=== PATIENT | female | born 1985 | race Asian ===

== ENCOUNTER → 2016-04-18 | Outpatient (CLI) | payer OTHER ==
--- NOTE | 2016-04-18 14:01 | US ---
April 18, [address] Grant, Thank you for requesting consultation and a follow up ultrasound for your patient, Mrs. Jordan youssef. As you know, Gavi is a 31 year old G 2, P 1001 . Her due date is 07/23/16 by LMP and 20 wee k ultrasound. Her current gestational age based on this dating is is 26 weeks 2 days. She is seen t ibis for a follow up assessment of growth in a complicated by chronic hypertension not requ iring medications. Her blood pressure in our office was 115/75. She states that they are in this ra nge at home also. ULTRASOUND Number of fetuses: 1 Placental location: Anterior; no evidence of previa presentation: Cephalic Heart Rate: 169 bpm Cervix: 4.1 cm viewed transabdominally Maximum Vertical Pocket: 5.9 cm Measurements: Biparietal diameter: 64 mm 26 weeks, 0 days Head circumference: 252 mm 27 weeks, 3 days Abdominal circumference: 216 mm 26 weeks, 1 days Femur length: 48 mm 26 weeks, 1 days Humerus length: 45 mm 26 weeks, 4 days Transcerebellar diameter: 33 mm 27 weeks, 6 days Average age by ultrasound: 26 weeks, 3 days Estimated weight: 901 gm weight percentile: 33 % ANATOMY anatomy was previously assessed. Today the following structures were visualized and appeared n ormal: Male gender, aortic arch, ductal arch, three-vessel view, limited views of the four-chamber h eart, stomach, lip and nose views, profile, lateral ventricle, cavum septum pellucidum, cerebel lum, bilateral kidneys, bladder, and lower extremities. IMPRESSION: 1. Intrauterine at 26 weeks, 2 days; KOBI of 07/23/16. 2. growth is appropriate size for dates. 3. anatomy was previously assessed and today's ultrasound continues to provide reassurance of normal appearing anatomy. 4. Normal amniotic fluid volume 5. Chronic hypertension RECOMMENDATIONS: I was pleased to review today's ultrasound with your patient. I reassured her that growth is normal at the 33 %ile for this gestational age. The amniotic fluid volume is normal. We performed a review of the anatomy which was limited by gestational age, and acoustic shadowing, but no overt abno rmalities were noted. I recommended a growth ultrasound at 32 weeks. Should she still be well controlled from a blood pres sure standpoint and the baby is appropriately grown at the next visit, then further imaging is at you r discretion. Thank you for allowing us the opportunity to evaluate your patient. Should you have any further ques tions or concerns please do not hesitate to contact me. Approximately 15 minutes were spent with the patient and 10 minutes were spent in face to face consu ltation. Lisset Min MD Survival Specialist Maternal Medicine Diagnosis Department of Obstetrics & Gynecology [facility]
--- NOTE | 2016-04-18 17:23 | US ---
OB Sonogram History: Follow-up growth, chronic maternal hypertension, history of section, KOBI July 23 7, 26 weeks 2 days Comparison: March 06, 2016 Findings: There is a single viable intrauterine gestation in vertex presentation. The cervix is close d measuring 4.1 cm transabdominally. The placenta is anterior without previa. There is no premature m aturation of the placenta. The umbilical cord inserts normally into the placenta. Maximum amniotic fl uid pocket = 5.9 cm. The visualized intracranial contents, face and spine look normal. The heart i s 4 chambered and has a intact interventricular septum and normal right and left ventricular outflow tracts. heart rate = 169 bpm. Fluid is identified in the stomach and urinary bladde r. The renal region looks normal. The umbilical cord has 3 vessels and a normal insertion site. 4 extremities are present. BPD = 64 mm = 26 weeks 0 days Head circumference = 252 mm = 27 weeks 3 days Abdominal circumference = 216 mm = 26 weeks 1 day Femur length = 48 mm = 26 weeks 1 day Humeral length = 45 mm = 26 weeks 4 days Cerebellar width = 33 mm = 27 weeks 6 days Cisterna magna = 5.9 mm Estimated weight = 33 percentile Average gestational age by ultrasound = 26 weeks 3 days KOBI by ultrasound = July 22, 2016 Impression: Size consistent with dates. This report should be read in conjunction with a consultation by Dr. Lisset Min.
== END ==
LOC: FIMAGING 12:35
PROVIDERS: ATTEND Obstetrics & Gynecology
DX: O16.2 Unspecified maternal hypertension, second trimester (principal); Z3A.26 26 weeks gestation of pregnancy

== ENCOUNTER → 2016-06-05 | Outpatient (CLI) | payer OTHER | LOC: FIMAGING 14:40 | PROVIDERS: ATTEND Obstetrics & Gynecology | DX: O10.913 Unspecified pre-existing hypertension complicating pregnancy, third trimester (principal); Z3A.33 33 weeks gestation of pregnancy; Z98.891 History of uterine scar from previous surgery ==

== ENCOUNTER 2016-07-16 14:12 | Observation (INO) | payer OTHER ==
--- NOTE | 2016-07-25 14:45 | GPROG ---
[f rep st] PROGRESS NOTE DISCHARGE ORDER DATE OF DISCHARGE: 07/16/2016 /[id number]/MODL
== END 2016-07-16 15:10 | disposition home or self-care (01) ==
LOC: FLD 14:12
PROVIDERS: ADMIT Obstetrics & Gynecology; ATTEND Obstetrics & Gynecology
DX: Z34.93 Encounter for supervision of normal pregnancy, unspecified, third trimester (principal); N89.8 Other specified noninflammatory disorders of vagina; Z3A.39 39 weeks gestation of pregnancy
CPT/HCPCS: 59025; G0378

== ENCOUNTER 2016-07-17 00:28 | Inpatient (IN) | payer OTHER ==
[2016-07-17] MEDS ORDERED: EPSOM SALT 454 GM TP PRN (00:56)
[2016-07-17] MEDS ORDERED: LIDOCAINE 1% 30 ML SDV SC PRN (00:56)
[2016-07-17] MEDS ORDERED: OLIVE OIL 118 ML BTL MISC PRN (00:56)
[2016-07-17] MEDS ORDERED: OXYTOCIN/RINGERS LACTATE 1,000 ML IV PRN (00:56)
[2016-07-17] MEDS ORDERED: LR 1,000 ML IV PRN (00:56)
[2016-07-17] MEDS ORDERED: TERBUTALINE SULFATE 1 MG/ML VIAL IV PRN (00:56)
[2016-07-17] MEDS ORDERED: AMPICILLIN SODIUM 2 GM in NS 100 ML IV ONE (00:56)
[2016-07-17] MEDS ORDERED: NS 100 ML BAG (MINI-BAG) IV ONE (01:04)
[2016-07-17 01:22] LABS: ADD DIFF? YES; ADD MORPH? NO; ADD SCAN? NO; ATYPICAL LYMPHOCYTE FLAG 10 (0-99); FRAGMENT RBC FLAG 0 (0-99); HEMATOCRIT 38.1 % (38.0-47.0); HEMOGLOBIN 12.7 g/dL (12.6-16.3); LEFT SHIFT FLG 20 (0-99); LIPEMIA HEMOLYSIS FLAG 80 (0-99); MEAN CELL HEMOGLOBIN 27.3 pg (27.9-34.1); MEAN CELL HEMOGLOBIN CONCENTR. 33.3 g/dL (32.4-36.7); MEAN CELL VOLUME 81.8 fL (81.5-99.8); MEAN PLATELET VOLUME 10.8 fL (8.7-11.7); PLATELET CLUMPS FLAG 20 (0-99); PLATELET COUNT 259 10^3/uL (150-400); RED BLOOD CELL COUNT 4.66 10^6/uL (4.18-5.33); RED CELL DISTRIBUTION WIDTH 15.1 % (11.5-15.2)
[2016-07-17] MEDS ORDERED: LIDOCAINE 1% 30 ML SDV ONE (01:30)
[2016-07-17] MEDS ORDERED: MISOPROSTOL 200 MCG TAB ONE (01:31)
[2016-07-17] MEDS ORDERED: TERBUTALINE SULFATE 1 MG/ML VIAL ONE (01:31)
[2016-07-17] MEDS ORDERED: OLIVE OIL 118 ML BTL ONE (01:31)
[2016-07-17] MEDS ORDERED: OXYTOCIN 10 UNIT/ML VIAL ONE (01:31)
[2016-07-17] MEDS ORDERED: AMMONIA AROMATIC 1 EACH AMP IH ONE (01:31)
--- NOTE | 2016-07-17 01:56 | GHP ---
[f rep st] HISTORY AND PHYSICAL DATE OF ADMISSION: 07/17/2016 CHIEF COMPLAINT: Leakage of fluid. HISTORY OF PRESENT ILLNESS: The patient is a G2, P1-0-0-1, at 39 weeks 1 day by LMP and 20 week US, who presents with leaking fluid since 11:30 p.m. She had been seen earlier in the day for increased discharge, but had been ruled out for rupture; however, at 11:30 p.m., she was lying down and had a very large gush of fluid. She denied contractions at that time, and was advised to present to Labor and Delivery for evaluation. Upon arriving to Labor and Delivery, she stated she began to have contractions shortly after she had called in complaining of leaking fluid, but was still feeling comfortable. Of note, she has a history of a in 2010 for failure to descend. Per her report, she was induced and after pushing for about 90 minutes, a was performed, as she was exhausted and had not yet delivered the baby. She denies any other complications in that or this . She denies vaginal bleeding. Her baby is active. OB Lab: B+, antibody neg. Hct 38.9. Varicell and rubella immune. RPR NR. Urine cx neg. HBsAg Neg, HIV Neg. 1 hour glucola = 99 Genetic screening declined. Normal 20 week anatomy ultrasound. Anterior placenta. GBS positive s/p Tdap and flu vaccines PAST MEDICAL HISTORY: One elevated blood pressure at first OB visit; normal since that time PAST SURGICAL HISTORY: with unknown scar, documented as LSCS in her operative note from [facility] in 2010. MEDICATIONS: vitamins. ALLERGIES: None. FAMILY HISTORY: Noncontributory. PHYSICAL EXAMINATION: VITAL SIGNS: 122/78, 93, 36.6 GENERAL: Alert, awake, in no acute distress. Oriented x4. CARDIOVASCULAR: Regular rate and rhythm. LUNGS: Unlabored breathing. ABDOMEN: Gravid, soft, nontender. EFW 7.5#. EXTREMITIES: No edema. GYNECOLOGIC: Grossly ruptured with clear fluid. Sterile vaginal exam: 8 cm, 90% effaced, -2 station, vertex. heart rate baseline 140, with moderate variability, positive accelerations, and no decelerations. Tocometer: Intermittent contractions about every 5 minutes. ASSESSMENT AND PLAN: Patient is a 31-year-old, G2, P1, at 39 weeks 1 day, who presents ruptured, in active labor. status reassuring. She just recently began having contractions and they remain somewhat irregular; however, she has progressed to 8 cm. She denies being in pain at this time. We had a detailed discussion with the patient and her regarding the risks and benefits of trial of labor after versus repeat delivery now. Both were offered to the patient. We specifically reviewed the risks of uterine rupture which could be a catastrophic occurrence, with a risk of ~ 1%. Likely her prior note is documented a lower segment section (LSCS). Her placenta is anterior, with no accreta/previa documented on US. We also reviewed the risks of recurrence of her prior history of failure to descend, ultimately requiring a delivery. After discussion of all risks and benefits, the parents state that they would like to proceed with a trial of labor. - Admit to Labor and Delivery for trial of labor after . - Start ampicillin for GBS positive. - Draw CBC and type and screen. - Continuous monitoring. - Routine intrapartum care. - Epidural prn /[id number]/MODL MTDD
[2016-07-17 02:36] LABS: MICROCYTES 1+; PLATELET ESTIMATE ADEQUATE (ADEQ)
[2016-07-17] MEDS ORDERED: fentaNYL 100 MCG/2 ML INJ ONE (02:43)
[2016-07-17] MEDS ORDERED: fentaNYL 2MCG/ML/BUP 0.1% RTU 100 ML BAG EP ONE (02:43)
[2016-07-17] MEDS ORDERED: BUPIVACAINE/DEXTROSE 7.5MG/ML 2 ML SPINAL AMP SP ONE (03:07)
[2016-07-17] MEDS ORDERED: PHENYLEPHRINE HCL 100 MCG/ML SYR ONE (03:07)
[2016-07-17] MEDS ORDERED: BUPIVACAINE 0.25% 30 ML SDV ONE (03:10)
[2016-07-17] MEDS ORDERED: LR 500 ML IV SCH (04:00)
--- NOTE | 2016-07-17 04:22 | OBPROG ---
OBG Progress Note Assessment/Plan: Assessment: 39w1d TOLAC Change in baseline from 130s/140s to 120s after epidural, mom requiring epinephrine for low BPs New intermittent decels, but overall reassuring No significant labor progression ROP presentation Plan: IV fluids O2 Position change IUPC Will continue to monitor closely, consider pitocin if contractions not adequate and status remains reassuring 07/17/16 04:20 Subjective: Comfortable with epidural Objective: 07/17/16 00:56 Patient ABO/Rh B POSITIVE 07/17/16 01:00 VS: BPs 90s/60s after epidural, increased to 110s-120/70s-80s after epinephrine Gen: awake, NAD Abd: soft, nontender Ext: no edema SVE: 8/80/-2/vtx/ROP FHR: baseline 120s, mod darien, + acc, intermittent variable decels and ? rare late decels. Overall reassuring with moderate variability and accelerations [place]: IUPC placed as contractions not picking up well FHR Pattern Variability: Moderate FHR Category: 2 Membranes: SROM Amniotic Fluid Color: Clear ICD10 Worksheet Patient Problems: Problems Problem Status Onset Encounter for trial of labor Acute - ICD10 Problem Qualifiers (1) Encounter for trial of labor
[2016-07-17] MEDS ORDERED: LR 500 ML IV PRN (04:49)
[2016-07-17] MEDS ORDERED: AMPICILLIN SODIUM 1 GM in NS 100 ML IV SCH (04:56)
[2016-07-17] MEDS ORDERED: OXYTOCIN/RINGERS LACTATE 500 ML IV SCH (05:00)
--- NOTE | 2016-07-17 05:03 | OBPROG ---
OBG Progress Note Assessment/Plan: Assessment: 39w1d TOLAC Change in baseline from 130s/140s to 120s after epidural, mom requiring epinephrine for low BPs, but overall status reassuring MVUs not adequate and ctx pattern irregular, however pt made progress on last exam Plan: IUPC Expectant management Hope to start pushing in ~ 1 hr 07/17/16 04:20 07/17/16 05:01 Subjective: comfortable Objective: 07/17/16 00:56 Patient ABO/Rh B POSITIVE 07/17/16 01:00 - SVE Dilation (cm): 9 Effacement (%): 100 Station: +1 Current Contraction Pattern: Regular FHR (bpm): 120 FHR Pattern Variability: Moderate FHR Category: 1 Membranes: SROM Amniotic Fluid Color: Clear ICD10 Worksheet Patient Problems: Problems Problem Status Onset Encounter for trial of labor Acute - ICD10 Problem Qualifiers (1) Encounter for trial of labor
--- NOTE | 2016-07-17 05:50 | OBPROG ---
OBG Progress Note Assessment/Plan: Assessment: 39w1d TOLAC Pushing, making excellent progress FHR reassuring, tracing similar to mom's but monitoring separately, with brief decels to 90s-110s after pushing but then returns to baseline after contractions Plan: Continue pushing expect Subjective: pushing Objective: 07/17/16 00:56 Patient ABO/Rh B POSITIVE 07/17/16 01:00 - SVE Dilation (cm): 10 Effacement (%): 100 Station: +2 Current Contraction Pattern: Regular FHR (bpm): 120 FHR Pattern Variability: Moderate FHR Category: 2 ICD10 Worksheet Patient Problems: Problems Problem Status Onset Encounter for trial of labor Acute - ICD10 Problem Qualifiers (1) Encounter for trial of labor
--- NOTE | 2016-07-17 07:14 | OBPROC ---
- Labor and Delivery Onset of Contractions Date: 08/16/16 Onset of Contractions Time: 23:30 Onset of Contractions Type: Spontaneous Rupture of Membranes Date: 08/16/16 Rupture of Membranes Time: 23:30 Rupture of Membranes Type: Spontaneous Amniotic Fluid Color: Clear Delivery Type: Spontaneous Placenta Delivery Date: 07/17/16 Episiotomy/Laceration: 2nd Degree Repair: 3-0 EBL: 350 Complications: Nuchal Cord - Medications Labor Augmentation/Induction Meds Used: None Anesthesia: Epidural, Local (Specify) (10 ml 1% plain lidocaine for repair) - [place] Info A Delivery Date: 07/17/16 Delivery Time: 06:33 Sex of Infant: Male Score (1 Min): 8 Score (5 Min): 9 (Pt pushed x 90 minutes with excellent effort. Delivered in ANGELICA presentation, loose nuchal cord reduced, anterior shoulder easily delivered followed by remainder of body and placed onto maternal abdomen. Cord clamped and then cut by FOB after stopping pulsing. IV pitocin 20 units started. Placenta delivered easily with fundal massage and gentle cord traction. Fundus firm. 2nd deg lac repaired in usual fashion. Mom and baby in good condition, skin to skin.)
[2016-07-17] MEDS ORDERED: HYDROCODONE/APAP 5/325 TAB PO PRN (07:15)
[2016-07-17] MEDS ORDERED: SIMETHICONE 80 MG TAB CHEW PO PRN (07:15)
[2016-07-17] MEDS ORDERED: HYDROCORTISONE 0.5% CREAM TP PRN (07:15)
[2016-07-17] MEDS ORDERED: ACETAMINOPHEN 325 MG TAB PO PRN (07:15)
[2016-07-17] MEDS ORDERED: OXYTOCIN/RINGERS LACTATE 1,000 ML IV SCH (07:30)
[2016-07-17] MEDS: IBUPROFEN 600 MG TAB PO PRN ×2 (08:26→17:16)
--- NOTE | 2016-07-18 08:22 | SOAPPROG ---
SOAP Progress Note Assessment/Plan: Assessment: 31 y.o. female PPD#1 s/p . Recovering well with good pain control. . Plan: Routine care. consult. Anticipate discharge to home tomorrow. 07/18/16 08:20 Subjective: Reports feeling well with good pain control and minimal vaginal bleeding. . Eating and drinking well without nausea or vomiting. Has been out of bed and ambulating without vertigo. Appropriate mood with good support system. Objective: Vital Signs Temp Pulse Resp BP Pulse Ox 36.8 C 86 16 110/66 99 07/17/16 20:00 07/17/16 20:00 07/17/16 20:00 07/17/16 20:00 07/17/16 20:00 Laboratory Results 07/17/16 00:56 07/17/16 07/18/16 07/19/16 05:59 05:59 05:59 Output Total 350 Balance -350 - Time Spent With Patient Time Spent With Patient: 20 minutes - Pending Discharge Pending Discharge Within 24 Hours: Yes Pending Discharge Date: 07/19/16 Pending Discharge Time: 11:00 Physical Exam - Physical Exam General Appearance: WD/WN, alert, no apparent distress EENT: normal ENT inspection Neck: non-tender, full range of motion, normal inspection Respiratory: chest non-tender, lungs clear, normal breath sounds Cardiac/Chest: regular rate, rhythm Abdomen: non-tender, soft Pelvic Exam: normal external exam Rectal: deferred Back: Normal inspection Skin: normal color, warm/dry Lymphatic: no adenopathy Extremities: normal range of motion, non-tender, normal inspection Neuro/Psych: alert, normal mood/affect, oriented x 3 ICD10 Worksheet Patient Problems: Problems Problem Status Onset Encounter for trial of labor Acute
[2016-07-18] MEDS: IBUPROFEN 600 MG TAB PO PRN ×2 (09:15→18:00)
[2016-07-18] MEDS: DOCUSATE SODIUM 100 MG CAP PO PRN ×2 (09:15→20:38)
[2016-07-18] MEDS ORDERED: EPSOM SALT 454 GM TP ONE (10:16)
[2016-07-18] MEDS ORDERED: EPSOM SALT 454 GM TP PRN (10:25)
[2016-07-18 22:18] VITALS: RESP 16
[2016-07-19] MEDS: IBUPROFEN 600 MG TAB PO PRN ×2 (00:30→08:43)
--- NOTE | 2016-07-19 08:53 | OBGCSDC ---
General Delivery Information - General Info : 2 Para: 2 Delivery Date: 07/17/16 Delivery Physician/CNM: Carly Contreras Labs: Patient ABO/Rh B POSITIVE 07/17/16 01:00 Hct 38.1 % (38.0-47.0) 07/17/16 00:56 - [place] Info Infant A Sex of Infant: Male Score (1 Min): 8 Score (5 Min): 9 (Pt pushed x 90 minutes with excellent effort. Delivered in ANGELICA presentation, loose nuchal cord reduced, anterior shoulder easily delivered followed by remainder of body and infant placed onto maternal abdomen. Cord clamped and then cut by FOB after stopping pulsing. IV pitocin 20 units started. Placenta delivered easily with fundal massage and gentle cord traction. Fundus firm. 2nd deg lac repaired in usual fashion. Mom and baby in good condition, skin to skin.) Vaginal - Diagnosis Labor: Spontaneous Rupture of Membranes Type: Spontaneous Amniotic Fluid Color: Clear Repair: 3-0 Complications: Nuchal Cord - Operations/Procedures Delivery Type: Spontaneous - Hospital Course Antepartum: Spontaneous ROM/labor. H/o C/S 2010, desires TOLAC Intrapartum: Uncomplicated spontaneous : Routine pp care - Delivery EBL: 350 Anesthesia: Epidural, Local (Specify) (10 ml 1% plain lidocaine for repair) Discharge Information - Discharge Information Condition: Good Instruction/Follow Up: See Instruction Sheet Discharge Physician/CNM: Carly Contreras Discharge Date: 07/19/16 Dictated: No
[2016-07-19 10:12] VITALS: BP 113/76; PULSE 85; TEMP 98.2; O2SAT 98
== END 2016-07-19 14:45 | disposition home or self-care (01) | DRG 775 ==
LOC: FLD 00:28 → OBSVTOIN 00:28 → FOB 10:26
PROVIDERS: ADMIT Obstetrics & Gynecology; ATTEND Obstetrics & Gynecology
DX: O70.1 Second degree perineal laceration during delivery (principal); O99.820 Streptococcus B carrier state complicating pregnancy; O34.211 Maternal care for low transverse scar from previous cesarean delivery; O69.81X0 Labor and delivery complicated by cord around neck, without compression, not applicable or unspecified; Z37.0 Single live birth; Z3A.39 39 weeks gestation of pregnancy
CPT/HCPCS: J0290; J2370; J2590; J3010; J3105